=== PATIENT | female | born 1990 | race Caucasian/White ===

== ENCOUNTER → 2022-06-02 | Outpatient (CLI) | payer OTHER, SELFPAY ==
--- NOTE | 2022-06-02 | FLU_PTH ---
PATIENT: SHIRA MOODY LOC: [facility] U#:[id number] AGE/SX: 32/F ROOM: RE06/02/[address]: Dr. Bronson Patel MD : [id number] BED: DIS: 06/02/2022 SPEC #: [id number] RECD: 06/02/22 12:04 STATUS: SHELLIE REJacinto #: [id number] NISHI: 06/02/22 00:[address]: Bronson Patel DEPT: CYTOLOGY RECD BY: Shira Roblero ENTERED: 06/02/22 13:09 SP TYPE: Fluid OTHR DR: Dr. Dany Christie, DO Tissues: A - Thyroid gland, NOS B - Thyroid gland, NOS Procedures: Special Stain Group II Surgery Specimen Level IV Cytospin Fluid Cytology Other HEADER OPERATION: Fine needle aspiration right thyroid PRE-OP DIAGNOSIS: Abnormal thyroid ultrasound TISSUE SUBMITTED: A ? FNA, right thyroid fluid, B ? FNA right thyroid x 12 slides DIAGNOSIS CYTOLOGY A ? FNA, right thyroid fluid (cytospins and cell block): A few clusters of benign follicular cells noted. B ? FNA right thyroid (smears): Consistent with benign follicular/colloid nodule ([place] category II). Adequate for evaluation. 06/05/2022 COMMENT Correlation with clinical, radiologic findings and appropriate follow up are necessary. CYTOLOGY STUDY Slides are reviewed. CYTOLOGY GROSS A - Received is 25 ml of light pink cloudy fluid labeled with the patient's name and and designated per the requisition as right thyroid. Submitted for cytology preparation including cell block. B - Received are 12 smears labeled with the patient's name and designated per the requisition as right thyroid. Submitted for staining. / jordan 06/02/2022 TC:5 CPT: 14674 x2, 20731
== END | disposition home or self-care (01) ==
LOC: LABSPEC 12:13
PROVIDERS: PCP Student in an Organized Health Care Education/Training Program; Referring Provider Surgery; Visit Provider Surgery
DX: D34 Benign neoplasm of thyroid gland (principal)
CPT/HCPCS: 88108; 88161; 88305; 88313